=== PATIENT | female | born 1985 | race Caucasian/White ===

== ENCOUNTER 2017-06-26 08:22 | Emergency (ER) | payer MEDICAID ==
[2017-06-26] MEDS: IBUPROFEN 600 MG TAB PO (08:51)
== END 2017-06-26 09:42 | disposition home or self-care (01) ==
LOC: FTE 08:22
DX: R07.89 Other chest pain (principal); E11.9 Type 2 diabetes mellitus without complications; J06.9 Acute upper respiratory infection, unspecified
CPT/HCPCS: 71045; 99283-25

== ENCOUNTER 2018-10-25 08:36 | Emergency (ER) | payer OTHER | END 2018-10-25 09:35 | disposition home or self-care (01) | LOC: FTE 09:35 | DX: J06.9 Acute upper respiratory infection, unspecified (principal); E11.9 Type 2 diabetes mellitus without complications | CPT/HCPCS: 99283 ==